=== PATIENT | male | born 1960 | race Caucasian/White ===

== ENCOUNTER 2017-10-06 11:42 | Emergency (ER) | payer OTHER ==
[2017-10-06 11:54] VITALS: BP 159/93; BMI 28.2
--- NOTE | 2017-10-06 12:01 | DR.LACERAT ---
HPI - Time Seen Time seen: 12:00 - Primary Care Physician Primary Care Physician: ZENA - HPI Comment HPI Comment: DENIES PARESTHESIA OR WEAKNESS. TD UTD. - Complaints Chief Complaint Doctors Comments: LEFT INDEX FINGER WITH CRUSH INJURY. NAIL ALMOST OFF, LACERATION UNDER NAIL AND FINGER CRUSHED. Chief Complaint:: PT'S LEFT INDEX FINGER GOT SMASHED BY A LATCH ON A DUMPSTER. LEFT NAIL BED NOTED WITH BLOOD UNDERNEATH. - Reviewed Nurses Notes Reviewed: Yes - Source History Provided: Patient - Mode of Arrival Mode of Arrival: Ambulatory - Location Left Finger Wound's Depth, Shape: Irregular Laceration Explored: Clean - Timing Onset of Chief Complaint: 10/06/17 - Context Mechanism: Crush Tetanus Vaccination: Yes - Severity Pain Severity: Moderate Bleeding:: Uncontrolled - Associated Signs and Symptoms Associated Signs and Symptoms: None PMH - PMH Past Medical History: No Past Surgical History: Yes Surgical History: Other Past Surgical History Comment: SINUS SURGERY - Family History History of Family Medical Conditions: No - Social History Does patient currently use any type of tobacco product: No Have you used tobacco products in the last 12 months: No Type of Tobacco Use: None Does any household member use tobacco: No Alcohol Use: None Do you use any recreational Drugs:: No Lives With: Spouse Lives Where: Home - infectious screening In the last 2 months have you had wt loss of >10#?: NO Have you had fever, night sweats or hemotysis?: No Have you traveled outside the country in the last 6 months?: No Isolation: Standard ROS - Review of Systems Constitutional: No Symptoms Reported Eyes: No Symptoms Reported ENTM: No Symptoms Reported Respiratoy: No Symptoms Reported Cardiovascular: No Symptoms Reported Gastrointestinal/Abdominal: No Symptoms Reported Genitourinary: No Symptoms Reported Neurological: No Symptoms Reported Musculoskeletal: Left, Hand Integumentary: Change in Color, Wound (LAC LT INDEX FINGER.) Hematologic/Lymphatic: No Symptoms Reported Endocrine: No Symptoms Reported All Other Systems: Reviewed and Negative PE - Vital Signs Vitals: Temperature 98.0 F Pulse Rate 71 Respiratory Rate 18 Blood Pressure 159/93 O2 Sat by Pulse Oximetry 97 - General Limitations: No Limitations General Appearance: Alert - Head Head Exam: Normal Inspection - Eyes Eye exam: Normal Appearance - ENT ENT Exam: Normal External Ear Exam - Neck Neck Exam: Trachea Midline - Chest Chest Inspection: Symmetric Chest Wall Rise - Respiratory Respiratory Exam: Normal Lung Sounds Bilat Respiratory Exam: Bilateral Clear to Auscultation - Cardiovascular Cardiovascular Exam: Regular Rate, Normal Rhythm, Normal Heart Sounds - Abdominal Exam Abdominal Exam: Normal Inspection - Extremities Extremities Exam: Tenderness (RT INDEX FINGER WITH AVUSION TUFT DISTAL ASPECT AND NAIL THAT IS ALMOST OUT. 4CM LACERATION UNDER NAIL.) - Back Back Exam: Normal Inspection - Neurologic Neurological Exam: Alert, Oriented X3 - Psychiatric Psychiatric Exam: Normal Affect, Normal Mood - Skin Skin Exam: Erythema Type of Lesion: Laceration Distribution: LUE Description: Tenderness, Erythematous, Swelling MDM - Differential Diagnosis Differential Diagnosis: Avulsion, Contusion, Laceration, Fracture, Hematoma Course - Treatment Treatment: SEE ORDERS. - Education/Counseling Education/Counseling: Patient, Education Educated On: Diagnosis, Needs for Follow Up ROR - XRAY XRAY Interpreted by: Radiologist XRAY Findings: REPORT DISCUSS WITH PATIENT. Procedures - Laceration/Wound Repair Left Finger Wound Length (cm): 4 (LEFT INDEX FINGER) Wound's Depth, Shape: Irregular Wound Explored: clean Betadine Prep?: Yes (SOAK IN BETADINE) Anesthesia: 1% Lidocaine Volume Anesthetic (ccs): 3 Wound Debrided: minimal Wound Repaired With: sutures Suture Size/Type: 4:0, Ethilion Number of Sutures: 9 Layer Closure?: No Sterile Dressing Applied?: Yes Splint Applied?: No Sling Applied?: No Progress: NAIL REMOVED ON LEFT INDEX FINGER. LACERATION UNDER NAIL BED CLOSE WITH 4-O ETHILON/9 SUTURES. - Diagnosis Discharge Problem: Laceration of left index finger Qualifiers: Encounter type: initial encounter Damage to nail status: without damage Foreign body presence: without foreign body Qualified Code(s): S61.211A - Laceration without foreign body of left index finger without damage to nail, initial encounter Crushing injury of left index finger Qualifiers: Encounter type: initial encounter Qualified Code(s): S67.191A - Crushing injury of left index finger, initial encounter Nail avulsion Qualifiers: Encounter type: initial encounter Qualified Code(s): S61.309A - Unspecified open wound of unspecified finger with damage to nail, initial encounter Fracture, finger Qualifiers: Encounter type: initial encounter Finger: index finger Fracture type: closed Phalanx: distal Fracture alignment: displaced Laterality: left Qualified Code(s) : S62.631A - Displaced fracture of distal phalanx of left index finger, initial encounter for closed fracture Finger avulsion Qualifiers: Encounter type: initial encounter Qualified Code(s): S61.209A - Unspecified open wound of unspecified finger without damage to nail, initial encounter - Discharge Plan Disposition: HOME, SELF-CARE Condition: Stable Prescriptions: Cephalexin [KEFLEX CAP 500 MG *] 500 mg PO TID #21 cap Tramadol HCl 50 mg PO Q8H PRN #15 tablet PRN Reason: - Follow ups/Referrals Follow ups/Referrals: NFD,None [Primary Care Provider] - 3 days - Instructions Instructions: Crush Injury, Fingers or Toes, [id number], Laceration Care, Adult, [id number] Additional Instructions: RETURN TO ED IF WORSE. YOU ALSO HAVE AVUSION FRACTURE OF YOUR FINGER. SUTURE OUT IN 2 WEEKS
[2017-10-06] MEDS ORDERED: XYLOCAINE 1 % (PLAIN) ONE (12:39)
--- NOTE | 2017-10-06 12:52 | RAD ---
Examination: Left hand, three views History: Injured 2nd finger Findings: There is a minimally displaced and comminuted fracture involving the tuft of the distal pha lanx , index finger. There is associated soft tissue injury suggesting that this is an open fracture. The remainder the digit is normal. Impression: Soft tissue avulsion with associated fracture involving the tuft of the distal phalanx, i ndex finger. Reported By:
[2017-10-06] MEDS ORDERED: BACITRACIN ZINC ONE (13:08)
[2017-10-06] MEDS ORDERED: BACTROBAN OINT TOP ONE (13:29)
== END 2017-10-06 13:34 | disposition home or self-care (01) ==
LOC: ER 11:53
PROC: 0XQP0ZZ Repair Left Index Finger, Open Approach (ICD-10-PCS; principal; 2017-10-06)
DX: S61.211A Laceration without foreign body of left index finger without damage to nail, initial encounter (principal); S67.191A Crushing injury of left index finger, initial encounter; S61.309A Unspecified open wound of unspecified finger with damage to nail, initial encounter; S62.631A Displaced fracture of distal phalanx of left index finger, initial encounter for closed fracture; S61.209A Unspecified open wound of unspecified finger without damage to nail, initial encounter; X58.XXXA Exposure to other specified factors, initial encounter; Y92.9 Unspecified place or not applicable
CPT/HCPCS: 12001; 12002; 73130; 99282; J2001